=== PATIENT | male | born 1990 | race Caucasian/White ===

== ENCOUNTER 2021-02-21 12:57 | Emergency (ER) | payer BC, SELFPAY ==
--- NOTE | ~2021-02-21 | XR_ITS ---
EXAMINATION: XR abdomen/kub 1V INDICATION: Generalized abdominal pain TECHNIQUE: Supine views of the abdomen were obtained on 2 radiographs. COMPARISON: None FINDINGS: A moderate volume of colonic stool is present. The bowel gas pattern is normal. The visuali zed lung bases are clear. The osseous structures are unremarkable. IMPRESSION: 1. Constipation. Reviewed, dictated and finalized at location A. IMPRESSION: 1. Constipation.
[2021-02-21 13:12] VITALS: BP 119/83; PULSE 91; RESP 20; TEMP 36.7; O2SAT 99
--- NOTE | 2021-02-21 13:36 | ED.ABDPAIN ---
HPI - Abdominal Pain General Chief Complaint: Abdominal Pain Stated Complaint: Abdominal pain, headache, fever Time Seen by Provider: 02/21/21 13:22 Source: patient and RN notes reviewed Mode of arrival: ambulatory Limitations: no limitations History of Present Illness HPI narrative: Patient presents today complaining of generalized abdominal pain x4 to 5 days, frontal headache. He reports fever up to 101 since last night. Reports the abdominal pain has kept him up for the last 4 to 5 days as well. Currently rates pain 6/10 and has been taking Advil one times. Describes the pain as burning. Denies nausea, vomiting, diarrhea. Denies urinary symptoms. Denies upper respiratory symptoms to include congestion, cough, rhinorrhea, sore throat. His mother and sister, whom he lives with, are both COVID-19 positive. He had a COVID-19 swab 3 days ago at [facility] that was negative. Upon further questioning later in visit, patient states he hasn't had a bowel movement for 14 days. He drank 1/4 bottle of old Magnesium Citrate last night without any results. States he had an episode of constipation such as this last year as well. MD elicited complaint: abdominal pain Related Data Home Medications Medication Instructions Recorded Confirmed No Home Medications 02/21/21 02/21/21 Allergies Allergy/AdvReac Type Severity Reaction Status Date / Time No Known Allergies Allergy Verified 02/21/21 13:22 Review of Systems Review of Systems: CONSTITUTIONAL: Denies body aches, chills, or sweats.+ Fever EYES: Denies visual changes, redness, or discharge. ENT: Denies rhinorrhea, congestion, sore throat, or otalgia. CARDIOVASCULAR: Denies chest pain, palpitations, or edema. RESPIRATORY: Denies cough or dyspnea. GASTROINTESTINAL: Denies nausea, vomiting, or diarrhea.+ Abdominal pain GENITOURINARY: Denies dysuria or hematuria. SKIN: Denies rash, itching, or wounds. MUSCULOSKELETAL: Denies back pain, joint pain, or myalgia. NEUROLOGIC: Denies numbness, tingling, or weakness.+ Headache PSYCH: Denies depression or anxiety. [facility] Social History Social History Gender identity (if verbalized by the patient): Male Comments At time of signature, I have reviewed and agree with nursing past medical, surgical, social and family history unless otherwise noted. Please see nursing chart for further information. There is no relevant family history pertinent to the presenting complaint Exam Narrative: GENERAL: Mildly ill-appearing, well-nourished, and in no acute distress. HEAD: Normocephalic, atraumatic. EYES: EOMI. No redness or drainage. Conjunctivae normal. ENT: Mucous membranes pink and moist. NECK: Normal AROM. Supple. No lymphadenopathy. CHEST: No respiratory distress. Clear to auscultation. HEART: Regular rate and rhythm. No murmur appreciated. Normal peripheral pulses. ABDOMEN: Soft, nondistended, normal active bowel sounds. + Generalized abdominal tenderness. No rebound or guarding. MUSCULOSKELETAL: No bony tenderness. EXTREMITIES: Normal range of motion. No edema. SKIN: Warm, dry, no rash. Capillary refill normal. Normal skin turgor. NEURO: No focal deficits. Alert and oriented x3. Gait steady. PSYCH: Normal affect. No signs of depression or anxiety. Course Vital Signs Vital signs: Vital Signs Temperature 98.1 F 02/21/21 13:12 Pulse Rate 91 02/21/21 13:12 Respiratory Rate 20 02/21/21 13:12 Blood Pressure 119/83 02/21/21 13:12 Pulse Oximetry 99 02/21/21 13:12 Temperature 98.1 F 02/21/21 13:12 Pulse Rate 91 02/21/21 13:12 Respiratory Rate 20 02/21/21 13:12 Blood Pressure 119/83 02/21/21 13:12 Pulse Oximetry 99 02/21/21 13:12 Reviewed. Pt has been instructed to follow up with his PCP regarding his elevated blood pressure today. MDM - Abdominal Pain Differential Diagnosis Differential diagnosis: Likely abdominal pain, acute appendicitis
== END 2021-02-21 14:37 | disposition home or self-care (01) ==
PROVIDERS: Emergency Provider Nurse Practitioner; PCP Nurse Practitioner Family
DX: U07.1 COVID-19 (principal)
CPT/HCPCS: 74018; 87426; 99213; C9803; G0463

== ENCOUNTER 2021-04-28 16:25 | Emergency (ER) | payer BC, SELFPAY ==
[2021-04-28 16:32] VITALS: BP 129/86; PULSE 81; RESP 14; TEMP 36.5; O2SAT 99
--- NOTE | 2021-04-28 17:20 | ED.UPPEXIN ---
HPI - Extremity Injury (Upper) General Chief Complaint: Extremity Injury, Upper Stated Complaint: Finger Injury Time Seen by Provider: 04/28/21 17:20 Source: patient and RN notes reviewed Mode of arrival: ambulatory Limitations: no limitations History of Present Illness HPI narrative: 30-year-old male presents concern for redness, pain to the tip of the fourth digit of the left hand. He reports symptoms started approximately 4 days ago and had purulent drainage from the wound. Reports he has been using a bandage and Neosporin. He denies any injury or trauma to the digit. MD complaint: injury to: left and finger Related Data Allergies Allergy/AdvReac Type Severity Reaction Status Date / Time dexmethylphenidate Allergy Nausea Verified 04/28/21 16:45 [From Focalin] Review of Systems Review of Systems: CONSTITUTIONAL: Denies malaise, chills, sweats, or fever. SKIN: Reports pain, swelling, redness to the tip of the fourth digit of left hand MUSCULOSKELETAL: Denies muscle skeletal pain NEUROLOGIC: Denies numbness, weakness All systems reviewed & are unremarkable except as noted in HPI and below PMFSH Social History Social History Gender identity (if verbalized by the patient): Male Comments At time of signature, agree with nursing past medical, surgical, social and family history. There is no relevant family history pertinent to the presenting complaint Exam Narrative: GENERAL: Well-appearing, well-nourished, and in no acute distress. HEAD: Normocephalic, atraumatic. EYES: PERRLA, conjunctivae clear ENT: Mucous membranes moist. NECK: Supple. No lymphadenopathy CHEST: Clear to auscultation. No respiratory distress. HEART: Regular rate and rhythm. SKIN: Warm, dry. Erythema mild edema and tenderness noted to the lateral edge of the nailbed of the fourth digit of the left hand consistent with paronychia NEURO: Alert and oriented x3. PSYCH: Normal mood and affect Course Course Emergency Course: Patient is aware of diagnosis, understands and agrees to treatment plan. Anticipatory guidance given. Patient agrees to follow-up as directed and is aware of reasons to seek care at the emergency department. Portions of this record may have been created with voice recognition software Vital Signs Vital signs: Vital Signs Temperature 97.7 F 04/28/21 16:32 Pulse Rate 81 04/28/21 16:32 Respiratory Rate 14 04/28/21 16:32 Blood Pressure 129/86 04/28/21 16:32 Pulse Oximetry 99 04/28/21 16:32 Temperature 97.7 F 04/28/21 16:32 Pulse Rate 81 04/28/21 16:32 Respiratory Rate 14 04/28/21 16:32 Blood Pressure 129/86 04/28/21 16:32 Pulse Oximetry 99 04/28/21 16:32 Reviewed. MDM - Extremity Injury (Upper) MDM Narrative Medical decision making narrative: Exam findings show no acute concerns or changes; patient is non-toxic appearing and is in no distress. Patient is appropriate for outpatient treatment and follow-up. Critical Care Time Critical Care Time Critical Care Time: No Discharge Plan Discharge Clinical Impression: Paronychia Patient Disposition: Home, Self-Care Condition: Stable Instructions: Antibiotic Form, Paronychia (ED) Additional Instructions: Soak your nail: Soak your nail in a mixture of equal parts vinegar and water 3 or 4 times each day. This will help decrease inflammation. Apply a warm compress: Soak a washcloth in warm water and place it on your nail. This will help decrease inflammation. Elevate: Raise your nail above the level of your heart as often as you can. This will help decrease swelling and pain. Prop your nail on pillows or blankets to keep it elevated comfortably. Use lotion: Apply lotion after you wash your hands. This will prevent your skin from becoming too dry. Please follow-up with your primary care doctor in the next 1-2 days. If you cannot follow-up with your primary care doctor please go
== END 2021-04-28 17:36 | disposition home or self-care (01) ==
PROVIDERS: Emergency Provider Nurse Practitioner; PCP Nurse Practitioner Family
DX: L03.012 Cellulitis of left finger (principal); J45.909 Unspecified asthma, uncomplicated
CPT/HCPCS: 99213; G0463

== ENCOUNTER 2022-05-01 08:23 | Emergency (ER) | payer BC, SELFPAY ==
[2022-05-01 08:30] VITALS: BP 120/81; PULSE 74; RESP 14; TEMP 36.6; O2SAT 100
--- NOTE | 2022-05-01 08:50 | ED.SKABFB ---
HPI - Skin/Abscess/Foreign Bdy General Chief complaint: Skin/Abscess/Foreign Body Stated complaint: left hand pinky swollen Time Seen by Provider: 05/01/22 08:50 Source: patient Mode of arrival: ambulatory Limitations: no limitations History of Present Illness HPI narrative: 31-year-old male presents with complaint of pain, swelling, redness to left little finger for several days. States that he likes to trim his nails often with a clipper. Denies biting nails. No history of paronychia. Range of motion to left little finger is intact. No drainage noted. All systems reviewed and negative except as noted above. Related Data Home Medications Medication Instructions Recorded Confirmed hydroxyzine HCl 25 mg tablet 25 mg PO DAILY 05/01/22 05/01/22 Allergies Allergy/AdvReac Type Severity Reaction Status Date / Time dexmethylphenidate Allergy Nausea Verified 05/01/22 08:57 [From Focalin] Review of Systems Review of Systems: CONSTITUTIONAL: Denies fever, chills, or sweats. EYES: Denies visual changes, redness, or discharge. ENT: Denies rhinorrhea, congestion, sore throat, or otalgia. CARDIOVASCULAR: Denies chest pain, palpitations, or edema. RESPIRATORY: Denies cough or dyspnea. GASTROINTESTINAL: Denies abdominal pain, nausea, vomiting, or diarrhea. GENITOURINARY: Denies dysuria or hematuria. SKIN: Denies rash or itching. Reports redness, pain and swelling to left little finger. MUSCULOSKELETAL: Denies back pain, joint pain, or myalgia. NEUROLOGIC: Denies headache, numbness, or weakness. PSYCHIATRIC: Denies anxiety or depression. All other systems reviewed are negative, except as documented in HPI. PMFSH Social History Social History Gender identity (if verbalized by the patient): Male Comments At time of signature, agree with nursing past medical, surgical, social and family history. There is no relevant family history pertinent to the presenting complaint. Exam Narrative: GENERAL: This is a well-nourished, well-developed patient, in no apparent distress. HEAD: normocephalic, atraumatic. EYES: PERRL. Sclera clear/white. Vision is grossly intact. EARS: External ears normal NOSE: External nose normal NECK: Neck supple, non-tender without lymphadenopathy, masses or thyromegaly. CARDIOVASCULAR: Regular rate and rhythm without murmurs, gallops, or rubs. RESPIRATORY: Clear to auscultation. Breath sounds equal bilaterally. No wheezes, rales, or rhonchi. SKIN: warm, Dry, intact with no suspicious lesions or rash, good texture and turgor. Erythema, swelling to left little finger with purulence noted under the skin consistent with paronychia. NEURO: awake, alert, and oriented to person, place and time. There were no obvious focal neurologic abnormalities. EXTREMITIES: No joint tenderness, effusion, or edema noted. Course Course Level of Care: Express Care Visit Vital Signs Vital signs: Vital Signs Temperature 36.6 C 05/01/22 08:30 Pulse Rate 74 05/01/22 08:30 Respiratory Rate 14 05/01/22 08:30 Blood Pressure 120/81 05/01/22 08:30 Pulse Oximetry 100 05/01/22 08:30 Oxygen Delivery Room Air 05/01/22 08:30 Temperature 36.6 C 05/01/22 08:30 Pulse Rate 74 05/01/22 08:30 Respiratory Rate 14 05/01/22 08:30 Blood Pressure 120/81 05/01/22 08:30 Pulse Oximetry 100 05/01/22 08:30 Oxygen Delivery Room Air 05/01/22 08:30 Reviewed Procedures Abscess I/D hand: Date of Incision: 05/01/22 Time of Incision: 09:22 Side (if applicable): left (Left little finger paronychia) Sedation/analgesia: none Local Anesthetic: none I&D Results: Pus Abcess I&D Additional Comments: Paronychia to left little finger drained with a 11 blade. Wound culture obtained. MDM - Skin/Abscess/Foreign Bdy MDM Narrative Medical decision making narrative: Patient is aware of diagnosis, understan
== END 2022-05-01 09:23 | disposition home or self-care (01) ==
PROVIDERS: Emergency Provider Nurse Practitioner Family; PCP Nurse Practitioner Family
DX: L03.012 Cellulitis of left finger (principal)
CPT/HCPCS: 10060; 87070; 87147; 87181; 87186; 87205; 99213; G0463

== ENCOUNTER 2022-06-12 11:33 | Emergency (ER) | payer BC, SELFPAY ==
--- NOTE | 2022-06-12 11:36 | ED.URI ---
HPI - URI/Sore Throat General Chief Complaint: Upper Respiratory Infection Stated Complaint: cold/flu Time Seen by Provider: 06/12/22 11:36 Source: patient and RN notes reviewed History of Present Illness HPI Narrative: patient is a 31-year-old male who presents to urgent care with complaints of cold, flu-like symptoms with cough and nasal drainage for 2 days. Patient states that he has been using Tylenol and 6. Patient denies any fever, nausea, vomiting or ill exposures. No other acute complaints. No acute distress noted. Patient aware of the plan of care. Some parts of this dictation were generated by voice recognition software and may contain typographical and/or grammatical inaccuracies. Related Data Home Medications Medication Instructions Recorded Confirmed hydroxyzine HCl 25 mg tablet 25 mg PO DAILY 05/01/22 05/01/22 Allergies Allergy/AdvReac Type Severity Reaction Status Date / Time dexmethylphenidate Allergy Nausea Verified 05/01/22 08:57 [From Focalin] Review of Systems Review of Systems: CONSTITUTIONAL: Denies fever, chills, or sweats. EYES: Denies visual changes, redness, or discharge. ENT: Reports of postnasal drainage and rhinorrhea CARDIOVASCULAR: Denies chest pain, palpitations, or edema. RESPIRATORY: reports of cough without dyspnea GASTROINTESTINAL: Denies abdominal pain, nausea, vomiting, or diarrhea. GENITOURINARY: Denies dysuria or hematuria. SKIN: Denies rash or itching. MUSCULOSKELETAL: Denies back pain, joint pain, or myalgia. NEUROLOGIC: Denies headache, numbness, or weakness. All other systems reviewed are negative, except as documented in HPI. PMFSH Social History Social History Gender identity (if verbalized by the patient): Male Comments At the time of my signature, I reviewed and agree with the nursing past medical, surgical, social, and family history. There is no relevant family history pertinent to the patient complaint. Exam Narrative: GENERAL: This is a well-nourished, well-developed patient, in no apparent distress. HEAD: normocephalic, atraumatic. EYES: PERRL. Sclera clear/white. Vision is grossly intact. EARS: External ears normal, auditory canals clear and without drainage, TMs normal without perforation. Hearing grossly intact. NOSE: External nose normal with no obvious nasal discharge, nares without redness, clear rhinorrhea. THROAT: Mucous membranes moist, posterior pharynx clear. moderate postnasal drainage NECK: Neck supple, non-tender without lymphadenopathy CARDIOVASCULAR: Regular rate and rhythm without murmurs, gallops, or rubs. RESPIRATORY: Clear to auscultation. Breath sounds equal bilaterally. No wheezes, rales, or rhonchi. SKIN: warm, intact with no suspicious lesions or rash, good texture and turgor. NEURO: awake, alert, and oriented to person, place and time. There were no obvious focal neurologic abnormalities. EXTREMITIES: No clubbing, cyanosis, or edema. Course Course Level of Care: Express Care Visit Vital Signs Vital signs: Vital Signs Temperature 98.7 F 06/12/22 11:41 Pulse Rate 102 H 06/12/22 11:41 Respiratory Rate 20 06/12/22 11:41 Blood Pressure 130/83 06/12/22 11:41 Pulse Oximetry 99 06/12/22 11:41 Oxygen Delivery Room Air 06/12/22 11:41 Temperature 98.7 F 06/12/22 11:41 Pulse Rate 102 H 06/12/22 11:41 Respiratory Rate 20 06/12/22 11:41 Blood Pressure 130/83 06/12/22 11:41 Pulse Oximetry 99 06/12/22 11:41 Oxygen Delivery Room Air 06/12/22 11:41 reviewed MDM - URI/Sore Throat MDM Narrative Medical decision making narrative: advised patient to use a daily antihistamine such as Zyrtec or Claritin. Use Benadryl and Flonase nasal spray prior to bedtime. Use Tylenol/ ibuprofen as needed for fever and body aches. Increase water intake and rest. Use a humidifier at night. Would advise using your [id number] C
[2022-06-12 11:41] VITALS: BP 130/83; PULSE 102; RESP 20; TEMP 37.1; O2SAT 99
== END 2022-06-12 12:05 | disposition home or self-care (01) ==
PROVIDERS: Emergency Provider Nurse Practitioner Family; PCP Nurse Practitioner Family
DX: J00 Acute nasopharyngitis [common cold] (principal)
CPT/HCPCS: 99211; G0463

== ENCOUNTER 2022-10-29 10:53 | Emergency (ER) | payer BC, SELFPAY ==
[2022-10-29 11:01] VITALS: BP 122/78; PULSE 104; RESP 16; TEMP 37.3; O2SAT 99
--- NOTE | 2022-10-29 11:29 | ED.URI ---
HPI - URI/Sore Throat General Chief Complaint: Upper Respiratory Infection Stated Complaint: covid test Time Seen by Provider: 10/29/22 11:25 Source: patient, RN notes reviewed and old records reviewed Mode of arrival: ambulatory Limitations: no limitations History of Present Illness HPI Narrative: 32-year-old male who presents to [facility] with 2 day history of cough, fever with chills and body aches, nasal congestion with drainage, headache, and sore throat.Patient reports that he has taken cough syrup, cough drops and also taking Tylenol for his fevers and body aches. Patient states that he has been COVID vaccinated and had Booster, states unsure if had flu shot. Patient reports no known ill contacts. MD elicited complaint: fever, cough, sore throat, rhinorrhea, nasal congestion, sinus pain and other (body aches) Onset (ago): day(s) (2) Pain scale (0-10): 2 Able to tolerate fluids by mouth: Yes Treatments prior to arrival: acetaminophen and other (cough syrup and cough drops) Related Data Allergies Allergy/AdvReac Type Severity Reaction Status Date / Time dexmethylphenidate Allergy Nausea Verified 05/01/22 08:57 [From Focalin] Review of Systems Review of Systems: CONSTITUTIONAL: Reports malaise, chills, sweats, or fever. EYES: Denies visual changes, redness, or discharge. ENT: Reports rhinorrhea, congestion, sinus pain,no otalgia,positive for sore throat. CARDIOVASCULAR: Denies chest pain, palpitations, or edema. RESPIRATORY: Reports cough.? Denies dyspnea. GASTROINTESTINAL: Denies abdominal pain, nausea, vomiting, diarrhea SKIN: Denies rash or itching. MUSCULOSKELETAL: Reports myalgia. NEUROLOGIC: Reports headache. All systems reviewed & are unremarkable except as noted in HPI and below PMFSH Social History Social History Smoking status: Never smoker Gender identity (if verbalized by the patient): Male Comments At time of signature, agree with nursing past medical, surgical, social and family history. There is no relevant family history pertinent to the presenting complaint Exam Narrative: GENERAL: Well-appearing, well-nourished, and in no acute distress. HEAD: Normocephalic EYES: PERRLA, conjunctivae clear ENT: Nares clear, turbinates edematous and erythematous, clear discharge. Mucous membranes moist. TM pearly myrick with dull light reflex bilaterally; no tragal tenderness. Oropharynx erythematous without lesions. Tonsils not enlarged and without exudate, no drooling, no hoarseness, no trismus, uvula midline.post nasal drainage noted NECK: Supple. No lymphadenopathy CHEST: Clear to auscultation, breath sounds equal. No wheezing, rhonchi, rales, or stridor. No respiratory distress, speaks in full sentences.no tachypnea ,SAO2 99% on room air HEART: Regular rate and rhythm. No murmur heard. SKIN: Warm, dry, no rash. NEURO: Alert and oriented x3. PSYCH: Normal mood and affect Course Course Emergency Course: Patient is aware of diagnosis, understands and agrees to treatment plan.? Anticipatory guidance given.? Patient agrees to follow-up as directed and is aware of reasons to seek care at the emergency department. Portions of this record may have been created with voice recognition software Level of Care: Express Care Visit Vital Signs Vital signs: Vital Signs Temperature 37.3 C 10/29/22 11:01 Pulse Rate 104 H 10/29/22 11:01 Respiratory Rate 16 10/29/22 11:01 Blood Pressure 122/78 10/29/22 11:01 Pulse Oximetry 99 10/29/22 11:01 Oxygen Delivery Room Air 10/29/22 11:01 Temperature 37.3 C 10/29/22 11:01 Pulse Rate 104 H 10/29/22 11:01 Respiratory Rate 16 10/29/22 11:01 Blood Pressure 122/78 10/29/22 11:01 Pulse Oximetry 99 10/29/22 11:01 Oxygen Delivery Room Air 10/29/22 11:01 Reviewed MDM - URI/Sore Throat MDM Narrative Medical decision making narrative: Differential di
== END 2022-10-29 11:53 | disposition home or self-care (01) ==
PROVIDERS: Emergency Provider Registered Nurse; PCP Nurse Practitioner Family
DX: U07.1 COVID-19 (principal)
CPT/HCPCS: 87081; 87426; 87804; 87880; 99213; C9803; G0463

== ENCOUNTER 2022-11-01 16:47 | Emergency (ER) | payer BC, SELFPAY ==
--- NOTE | 2022-11-01 17:01 | ED.URI ---
HPI - URI/Sore Throat General Chief Complaint: Upper Respiratory Infection Stated Complaint: Runny Nose/Fever Source: patient and RN notes reviewed History of Present Illness HPI Narrative: 32-year-old male presents to urgent care with complaints fatigue. Patient was seen here 3 days ago and diagnosed with COVID. Patient states his symptoms started on Tuesday or of last week and had fevers at that time. Patient states he is due to go back to work on Tuesday of this week is unsure if he will be able to carry out his duties due to tiredness. Denies any fevers, chest pain, shortness of breath, or vomiting. Related Data Allergies Allergy/AdvReac Type Severity Reaction Status Date / Time dexmethylphenidate Allergy Nausea Verified 05/01/22 08:57 [From Focalin] Review of Systems Review of Systems: CONSTITUTIONAL: Denies fever, chills, or sweats. Reports fatigue. EYES: Denies visual changes, redness, or discharge. ENT: Denies otalgia and sore throat CARDIOVASCULAR: Denies chest pain, palpitations, or edema. RESPIRATORY: Denies cough or dyspnea. GASTROINTESTINAL: Denies abdominal pain, nausea, vomiting, or diarrhea. GENITOURINARY: Denies dysuria or hematuria. SKIN: Denies rash or itching. MUSCULOSKELETAL: Denies back pain, joint pain, or myalgia. NEUROLOGIC: Denies headache, numbness, or weakness. Pertinent positives per HPI. PMFSH Social History Social History Smoking status: Never smoker Gender identity (if verbalized by the patient): Male Comments At the time of my signature, I reviewed and agree with the nursing past medical, surgical, social, and family history. There is no relevant family history pertinent to the patient complaint. Exam Narrative: GENERAL: This is a well-nourished, well-developed patient, in no apparent distress. HEAD: normocephalic, atraumatic. EYES: Sclera clear/white. Vision is grossly intact. EARS: External ears normal, auditory canals clear and without drainage. Hearing grossly intact. NOSE: External nose normal with no obvious nasal discharge, nares without redness, no rhinorrhea. THROAT: Mucous membranes moist NECK: Neck supple, non-tender without lymphadenopathy, masses or thyromegaly. CARDIOVASCULAR: Regular rate RESPIRATORY: No respiratory distress. Speaking in full sentences. SKIN: warm, intact with no suspicious lesions or rash, good texture and turgor. NEURO: awake, alert, and oriented to person, place and time. There were no obvious focal neurologic abnormalities. Course Course Level of Care: Express Care Visit Vital Signs Vital signs: reviewed MDM - URI/Sore Throat MDM Narrative Medical decision making narrative: Get plenty of rest and fluids. Differential Diagnosis Differential diagnosis: Likely upper respiratory infection, viral infection and bronchitis Critical Care Time Critical Care Time Critical Care Time: No Discharge Plan Discharge Clinical Impression: COVID-19 Patient Disposition: Home, Self-Care Condition: Stable Instructions: COVID-19 (Coronavirus Disease 2019) (ED) Additional Instructions: Get plenty of rest and fluids. Follow-up/Referrals: Sylvester,Yajaira Dowling APN [Primary Care Provider] - Time of Disposition: 17:15
== END 2022-11-01 17:22 | disposition home or self-care (01) ==
PROVIDERS: Emergency Provider Nurse Practitioner Family; PCP Nurse Practitioner Family
DX: U07.1 COVID-19 (principal)
CPT/HCPCS: 99211; G0463

== ENCOUNTER 2023-10-19 18:07 | Emergency (ER) | payer BC, SELFPAY ==
[2023-10-19 18:15] VITALS: BP 127/94; PULSE 78; RESP 16; TEMP 36.5; O2SAT 99
--- NOTE | 2023-10-19 18:47 | ED.DENTAL ---
HPI - Dental/Oral General Chief complaint: Dental/Oral Stated complaint: Fever/stomach Time Seen by Provider: 10/19/23 18:47 Source: patient, RN notes reviewed and old records reviewed Mode of arrival: ambulatory Limitations: no limitations History of Present Illness HPI Narrative: 33-year-old male to [facility] for complaint bilateral lower molar pain for 6 months. Patient endorses history of fractures. Patient states he has been seen by dentist for 2 years. Patient endorses he is on waiting list for [facility] Patient denies pain in exam room. Endorses the exists when chewing or lying down. Patient last seen in primary care provider 1 month ago and was not provided with care for teeth or infection. patient denies fever, nausea, vomiting, drainage from the gums. Patient endorses that he be placed dental wax in both broken molars yesterday. Related Data Allergies Allergy/AdvReac Type Severity Reaction Status Date / Time dexmethylphenidate AdvReac Intermediate Nausea Verified 10/19/23 18:40 [From [place]] Review of Systems Review of Systems: All systems reviewed & are unremarkable except as noted in HPI and below Constitutional: Constitutional: Reports no additional constitutional complaints Eyes: Eyes: Reports no additional eye complaints ENT: Reports as per HPI, Reports dental pain, Denies otalgia, Denies facial pain and Denies sore throat Cardiovascular: Cardiovascular: Reports no additional cardiovascular complaints, Denies chest pain and Denies dyspnea Respiratory: Respiratory: Reports no additional respiratory complaints, Denies cough and Denies dyspnea Musculoskeletal: Musculoskeletal: Reports no additional musculoskeletal complaints Neurologic: Reports system reviewed and no additional complaints, except as documented Psychiatric: Psychiatric: Reports no additional psychiatric complaints PMFSH Social History Social History Smoking status: Never smoker Gender identity (if verbalized by the patient): Male Comments At the time of my signature, I reviewed and agree with the nursing past medical, surgical, social, and family history. There is no relevant family history pertinent to the patient complaint. Exam Const: General: cooperative, healthy appearing, comfortable, no acute distress, alert and well nourished Nutritional Appearance: well nourished Orientation/consciousness: patient oriented x3 Limitations: no limitations HENMT: Head: normal to inspection Ears: external ears normal Face/Nose/Sinus: Normal external nose present, Normal nares present, normal facial exam, No erythema and No edema Face and sinus: normal facial exam, no erythema and no edema Mouth: Yes Normal oral and palatal mucosa present Teeth and gingiva: abnormal tooth and associated gingiva left third molar , right third molar , caries and gingiva abnormal hypertrophic, edematous, tender and receding; without any purulent discharge Eyes: General: appearance normal, both eyes and all related structures Neck: Neck: normal visual inspection, full ROM and no meningeal signs Lymphatic: no lymphadenopathy noted and no lymphedema noted Chest: Chest palpation & inspection: normal inspection of the chest Resp: Effort & Inspection: normal respiratory effort and able to speak in complete sentences Auscultation: clear to auscultation bilaterally Cardio: Jugular venous distension: no JVD Rate: regular rate Rhythm: regular rhythm Back/Spine/Pelvis: Cervical Spine: cervical ROM normal Skin: General skin exam: normal color, no rashes or lesions noted and turgor normal Neuro: General: patient oriented x3, gait normal, moves all extremities and no meningeal signs Speech: normal speech Gait exam (Neuro): Normal gait present Extrem: General: normal to inspection, full ROM and capillary refill normal Psych: Appearance: grossly normal and well kempt Course Cou
== END 2023-10-19 19:00 | disposition home or self-care (01) ==
PROVIDERS: Emergency Provider Nurse Practitioner Family; PCP Nurse Practitioner Family
DX: K04.7 Periapical abscess without sinus (principal); J45.909 Unspecified asthma, uncomplicated
CPT/HCPCS: 99213; G0463